=== PATIENT | female | born 1980 | race Caucasian/White ===

== ENCOUNTER 2016-07-19 10:42 | Emergency (ER) | payer MEDICAID ==
[2016-07-19 10:55] VITALS: BP 144/85
--- NOTE | 2016-07-19 11:37 | EDM.PDOC ---
ED HISTORY OF PRESENT ILLNESS - General Chief Complaint: Respiratory Problem Stated Complaint: HARD TIME BREATHING Time Seen by Provider: 07/19/16 11:35 Source: Reports: Patient, Family History Limitations: Reports: No limitations - History of Present Illness INITIAL COMMENTS - FREE TEXT/NARRATIVE: t has had increased sob. She has a history of increased spial fluid pressure and when that is high she has been sob also. Timing/Duration: Reports: Day(s):, Getting worse Severity: moderate Location, General: Reports: chest Associated Symptoms: Reports: shortness of breath - Related Data Allergies/ADRs: Allergies Allergy/AdvReac Type Severity Reaction Status Date / Time No Known Allergies Allergy Verified 06/14/16 18:36 Home Meds: Home Meds traMADol [Ultram] 50 mg PO QID PRN #16 tablet 12/24/15 [Rx] Methazolamide [Methazolamide] 200 mg PO BID 06/14/16 [History] Naproxen 500 mg PO ASDIRECTED PRN 07/19/16 [History] Ondansetron [Ondansetron] 4 mg PO ASDIRECTED PRN 07/19/16 [History] Past Medical History HEENT History: Reports: Impaired vision Cardiovascular History: Reports: Other (see below) Other Cardiovascular History: palpitations in the past. pericardial cyst with chest tube and drainage. Respiratory History: Reports: Other (see below) Other Respiratory History: chest tube d/t pericardial cyst treatment. 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 Sternal cortisone injections Other Neuro History: Idiopathic intercranial hypertension, frequent lumbar punctures to relieve pressure headaches - Infectious Disease History Infectious Disease History: Reports: Chicken pox Social & Family History - Tobacco Use Smoking Status *Q: Former Smoker Years of Tobacco use: 15 Packs/Tins Daily: 0.5 Used Tobacco, but Quit: No Second Hand Smoke Exposure: No - Caffeine Use Caffeine Use: Reports: None - Alcohol Use Days Per Week of Alcohol Use: 0 - Recreational Drug Use Recreational Drug Use: No ED ROS GENERAL - Review of Systems Review Of Systems: See Below Constitutional: Reports: no symptoms HEENT: Reports: No symptoms Respiratory: Reports: Shortness of Breath Cardiovascular: Reports: No symptoms Endocrine: Reports: no symptoms GI/Abdominal: Reports: No symptoms : Reports: no symptoms Musculoskeletal: Reports: no symptoms Skin: Reports: no symptoms Neurological: Reports: No Symptoms ED EXAM, GENERAL - Physical Exam Exam: See Below Free Text/Narrative:: pt knows her spinal fluid pressure is high and she is now sob. Her neurologist wanted to be sure that she was not getting acidotic. Exam Limited By: No limitations General Appearance: alert, anxious Ears: normal TMs Nose: normal inspection Throat/Mouth: Normal inspection Head: atraumatic Neck: normal inspection Respiratory/Chest: no respiratory distress, other (o2 sats are 99-100. ) Cardiovascular: regular rate, rhythm GI/Abdominal: soft, non tender (Female) Exam: Deferred Rectal (Female) Exam: Deferred Back Exam: normal inspection Extremities: normal inspection Neurological: alert, oriented Course - Vital Signs Last Recorded V/S: Last Vital Signs Temp 36.3 C 07/19/16 11:07 Pulse 94 07/19/16 11:07 Resp 16 07/19/16 11:07 BP 144/85 H 07/19/16 11:07 Pulse Ox 99 07/19/16 11:07 - Orders/Labs/Meds Labs: Laboratory Tests 07/19/16 07/19/16 07/19/16 Range/Units 11:33 11:33 12:47 WBC 9.1 (4.5-11.0) K/uL RBC 5.33 (3.30-5.50) M/uL Hgb 14.6 (12.0-15.0) g/dL Hct 45.3 (36.0-48.0) % MCV 85 (80-98) fL MCH 27 (27-31) pg MCHC 32 (32-36) % Plt Count 293 (150-400) K/uL Neut % (Auto) 63 (36-66) % Lymph % (Auto) 25 (24-44) % [place] % (Auto) 9 H (2-6) % Eos % (Auto) 2 (2-4) % Baso % (Auto) 1 (0-1) % ABG Hemoglobin 14.5 (12.0-16.0) g/dL ABG Oxyhemoglobin 61.3 % ABG Carboxyhemoglobin 1.3 (0.0-1.6) % ABG Methemoglobin 0.8 % VBG pH 7.343 L (7.350-7.450) VBG pCO2 35.2 mm/Hg VBG pO2 34.3 mm/Hg VBG HCO3 18.6 mmol/L VBG Total CO2 16.7 mmol/L VBG O2 Saturation 62.6 VBG O2 Content 12.5 %vol VBG Base Excess -5.8 mm/L O2 Delivery Device Room air Sodium 139 L (140-148) mmol/L Potassium 3.7 (3.6-5.2) mmol/L Chloride 104 (100-108) mmol/L Carbon Dioxide 21 (21-32) mmol/L Anion Gap 17.7 H (5.0-14.0) mmol/L BUN 10 (7-18) mg/dL Creatinine 0.7 (0.6-1.0) mg/dL Est Cr Clr Drug Dosing 89.56 mL/min Estimated GFR (MDRD) > 60 (>60) Glucose 80 (74-106) mg/dL Calcium 8.8 (8.5-10.1) mg/dL - Re-Assessments/Exams Free Text/Narrative Re-Assessment/Exam: 07/19/16 13:01 attempt were made to get abg and this was not sucessful. Venous ph was gotten which looked ok. Her co2 was alsogood. er chest xray is unchanged except her pericardial cyst has been drained. Departure - Departure Time of Disposition: 13:03 Disposition: Home, Self-Care 01 Condition: fair Clinical Impression: SOB (shortness of breath), Intracranial hypertension Forms: ED Department Discharge Care Plan Goals: copy lab work and send with the pt. Set up an appt with the neurologist for a spinal tap.
--- NOTE | 2016-07-19 12:47 | CR ---
Chest 2V INDICATION: sob FINDINGS: Comparison 02/04/2016. Atelectasis in the left lung base has resolved. The previously visua lized known pericardial cyst has presumably been drained. No focal infiltrate. Chest otherwise unrem arkable.
== END 2016-07-19 13:30 | disposition home or self-care (01) ==
LOC: JP.ED 10:42
DX: R06.02 Shortness of breath (principal); G93.2 Benign intracranial hypertension; Z79.899 Other long term (current) drug therapy; Z87.891 Personal history of nicotine dependence
CPT/HCPCS: 36415; 71020; 71020-26; 80048; 82803; 85025; 99283; 99285

== ENCOUNTER 2016-07-23 18:25 | Emergency (ER) | payer MEDICAID ==
[2016-07-23] MEDS ORDERED: Ondansetron 4 MG/2 ML SDV IVPUSH ONE (19:14)
[2016-07-23] MEDS ORDERED: Sodium Chloride 0.9% 1,000 ML IV SCH ×3 (19:15→21:45)
[2016-07-23] MEDS ORDERED: HYDROmorphone 0.5 MG/0.5 ML Syringe IVPUSH ONE (19:17)
--- NOTE | 2016-07-23 19:18 | EDM.PDOC ---
[id number] HEADACHE,NAUSEA,SOB Time Seen by Provider: 07/23/16 19:17 Source: Reports: Patient History Limitations: Reports: No limitations - History of Present Illness INITIAL COMMENTS - FREE TEXT/NARRATIVE: pt had a spinal tap 2 days ago and now she has a very severe headache. When she stands up she gets a much worse She has been vomiting all day. Timing/Duration: Reports: Hour(s):, Day(s):, Getting worse, Other ( pt has not felt well since last nite. ) Location: Reports: other (pain in the back of her head. ) Place: home Associated Symptoms: Reports: Nausea/vomiting, Other ( severe headache. ) - Related Data Allergies/ADRs: Allergies Allergy/AdvReac Type Severity Reaction Status Date / Time fish derived Allergy Difficulty Verified 07/23/16 19:02 Swallowing Home Meds: Home Meds Methazolamide [Methazolamide] 100 mg PO BID 06/14/16 [History] Naproxen 500 mg PO ASDIRECTED PRN 07/19/16 [History] Ondansetron [Ondansetron] 4 mg PO ASDIRECTED PRN 07/19/16 [History] traMADol [Ultram] 50 mg PO QID PRN 07/23/16 [History] Past Medical History HEENT History: Reports: Impaired vision Cardiovascular History: Reports: Other (see below) Other Cardiovascular History: palpitations in the past. pericardial cyst with chest tube and drainage. Respiratory History: Reports: Other (see below) Other Respiratory History: chest tube d/t pericardial cyst treatment. 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 Sternal cortisone injections Neurological History: Reports: Other (see below) Other Neuro History: Idiopathic intercranial hypertension, frequent lumbar punctures to relieve pressure headaches - Infectious Disease History Infectious Disease History: Reports: Chicken pox Social & Family History - Tobacco Use Smoking Status *Q: Light Tobacco Smoker Years of Tobacco use: 10 Packs/Tins Daily: 0.2 Used Tobacco, but Quit: No Second Hand Smoke Exposure: No - Caffeine Use Caffeine Use: Reports: None - Alcohol Use Days Per Week of Alcohol Use: 0 - Recreational Drug Use Recreational Drug Use: No ED ROS GENERAL - Review of Systems Review Of Systems: See Below Constitutional: Reports: no symptoms HEENT: Reports: No symptoms Respiratory: Reports: No Symptoms Cardiovascular: Reports: No symptoms Endocrine: Reports: no symptoms GI/Abdominal: Reports: No symptoms : Reports: no symptoms Neurological: Reports: Headache, Other ( Pt has a very severe post spinal headache, ) ED EXAM, UPPER BACK/NECK PAIN - Physical Exam Exam: See Below Text/Narrative:: Pt is a very uncomfortable pt with a severe post spinal headache. Exam Limited By: No limitations General Appearance: alert, anxious Ears Exam: normal TMs Nose Exam: normal inspection Throat/Mouth Exam: Normal inspection Head Exam: other (pt is having a very severe headache. ) Neck Exam: muscle spasm Cardiovascular/Respiratory: regular rate, rhythm GI/Abdominal: other (mild upper abdomanal tenderness from vomiting. ) (Female) Exam: Deferred Rectal (Female) Exam: Deferred Back Exam: normal inspection Extremities: normal inspection Neurologic: alert, oriented x 3 Psychiatric: normal affect Course - Vital Signs Last Recorded V/S: Last Vital Signs Temp 36.3 C 07/23/16 18:52 Pulse 81 07/23/16 22:49 Resp 16 07/23/16 18:52 BP 119/89 07/23/16 22:49 Pulse Ox 99 07/23/16 22:49 - Orders/Labs/Meds Labs: Laboratory Tests 07/23/16 07/23/16 Range/Units 19:24 19:24 WBC 10.1 (4.5-11.0) K/uL RBC 4.65 (3.30-5.50) M/uL Hgb 12.8 (12.0-15.0) g/dL Hct 39.4 (36.0-48.0) % MCV 85 (80-98) fL MCH 28 (27-31) pg MCHC 33 (32-36) % Plt Count 255 (150-400) K/uL Neut % (Auto) 61 (36-66) % Lymph % (Auto) 28 (24-44) % [place] % (Auto) 8 H (2-6) % Eos % (Auto) 2 (2-4) % Baso % (Auto) 1 (0-1) % Sodium 143 (140-148) mmol/L Potassium 3.6 (3.6-5.2) mmol/L Chloride 109 H (100-108) mmol/L Carbon Dioxide 22 (21-32) mmol/L Anion Gap 15.6 H (5.0-14.0) mmol/L BUN 11 (7-18) mg/dL Creatinine 0.7 (0.6-1.0) mg/dL Est Cr Clr Drug Dosing 89.56 mL/min Estimated GFR (MDRD) > 60 (>60) Glucose 122 H (74-106) mg/dL Calcium 8.2 L (8.5-10.1) mg/dL Meds: Medications Discontinued Medications Generic Name Dose Route Start Last Admin Trade Name Sukumarq PRN Reason Stop Dose Admin Hydromorphone HCl 0.5 mg 07/23/16 19:17 07/23/16 19:31 Dilaudid IVPUSH 07/23/16 19:18 0.5 mg ONETIME ONE Administration Sodium Chloride 1,000 mls @ 300 mls/hr 07/23/16 19:15 07/23/16 19:31 Normal Saline IV 300 mls/hr ASDIRECTED CHARITY Administration Sodium Chloride 1,000 mls @ 200 mls/hr 07/23/16 21:45 Normal Saline IV ASDIRECTED CHARITY Sodium Chloride 1,000 mls @ 999 mls/hr 07/23/16 21:45 07/23/16 21:45 Normal Saline IV 999 mls/hr ASDIRECTED CHARITY Administration Ondansetron HCl 4 mg 07/23/16 19:14 07/23/16 19:31 Zofran IVPUSH 07/23/16 19:15 4 mg ONETIME ONE Administration - Re-Assessments/Exams Free Text/Narrative Re-Assessment/Exam: 07/23/16 21:47 pt had a blood patch done which has been helpful. She states the headache is much better. She will be given 2 liters of fluid. will gradually get the pt to a sitting a position after an hour. Will gradually mobilize the pt. Departure - Departure Time of Disposition: 23:15 Disposition: Home, Self-Care 01 Condition: fair Clinical Impression: Headache, spinal, postoperative Instructions: Spinal Headache Referrals: Domenico Bay MD [Primary Care Provider] - Forms: ED Department Discharge Care Plan Goals: low activity, push fluids, rtc if problems.
--- NOTE | 2016-07-23 21:56 | ANES ---
DATE OF SERVICE: 07/23/2016 Anesthesia Procedure note. INDICATIONS: This is a 36-year-old lady in the emergency room with an apparent spinal headache, this lady is well known to us. She has a history of having to have a cerebral spinal fluid drained off. She has been having these last several done in [place] and [place]. This one was done in [place]. On questioning her where it normally takes 45 minutes to an hour to drain this CSF, this was done by radiologist in [place] and she said it only talk about 5 or 10 minutes to drain off the fluid. To me that means that he used either a 20 or 18-gauge spinal needle, producing a hole in her dura that did not heal. The procedure was explained to her in detail. All questions were answered. She has not had a blood patch epidural in the past. A consent was signed. She was placed in the sitting position. Her feet were on a chair. Knees bent at 90 degrees. Betadine solution prep, the epidural was accomplished at what I believe is L4-5. I could not see the hole that the radiologist had used. I had a good seal. No paresthesia. No CSF. No blood. The 15 mL of whole blood was drawn by the emergency room nurse from her left antecubital, this was then injected into the epidural space through the needle. By the end of the injection her headache was feeling much better to her. The needle was removed. She was placed in the supine position. She was counseled strongly on avoiding the Valsalva maneuvers such as lifting her head coughing, sneezing, getting up, holding her breath, straining at going to the bathroom. She understands this. We are going to leave her supine for 45 minutes. Gradually, increasing her 5 to 10 degrees head up. She will receive a total 2 L of crystalloid. Tolerated the procedure well. Adam Velez CRNA /[id number]
[2016-07-23 22:57] VITALS: BP 119/89
== END 2016-07-23 23:09 | disposition home or self-care (01) ==
LOC: JP.ED 18:25
DX: G97.1 Other reaction to spinal and lumbar puncture (principal); F17.210 Nicotine dependence, cigarettes, uncomplicated; Z79.899 Other long term (current) drug therapy; Z91.018 Allergy to other foods
CPT/HCPCS: 36415; 80048; 85025; 96361; 96374; 96375; 99285; J1170; J2405; J7040; 99284

== ENCOUNTER 2016-08-23 21:08 | Emergency (ER) | payer MEDICAID ==
[2016-08-23 21:19] VITALS: BP 135/80
[2016-08-23] MEDS ORDERED: EPINEPHrine 1:1000 1 MG/ML SDV IM ONE (21:42)
[2016-08-23] MEDS ORDERED: diphenhydrAMINE 50 MG/ML SDV IVPUSH ONE (21:42)
[2016-08-23] MEDS ORDERED: methylPREDNISolone Sodium Succinate 40 MG/1 ML SDV IVPUSH ONE (21:42)
--- NOTE | 2016-08-23 21:45 | EDM.PDOC ---
ED HPI Allergic Reaction - General Chief Complaint: Allergic Reaction Stated Complaint: FACE TIGHTENING Time Seen by Provider: 08/23/16 21:39 Source: Reports: Patient, RN notes reviewed History Limitations: Reports: No limitations - History of Present Illness INITIAL COMMENTS - FREE TEXT/NARRATIVE: 36-year-old female presents emergency department today with complaint of facial swelling she states sudden onset denies any new medications new foods she has had issues with allergic reaction before she does not feel short of breath and no difficulty swallowing - Related Data Allergies/ADRs: Allergies Allergy/AdvReac Type Severity Reaction Status Date / Time fish derived Allergy Difficulty Verified 08/23/16 21:19 Swallowing Home Meds: Home Meds Methazolamide [Methazolamide] 100 mg PO BID 06/14/16 [History] Naproxen 500 mg PO ASDIRECTED PRN 07/19/16 [History] Ondansetron [Ondansetron] 4 mg PO ASDIRECTED PRN 07/19/16 [History] traMADol [Ultram] 50 mg PO QID PRN 07/23/16 [History] Past Medical History HEENT History: Reports: Impaired vision Cardiovascular History: Reports: Other (see below) Other Cardiovascular History: palpitations in the past. pericardial cyst with chest tube and drainage. Respiratory History: Reports: Other (see below) Other Respiratory History: chest tube d/t pericardial cyst treatment. 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 Sternal cortisone injections Neurological History: Reports: Other (see below) Other Neuro History: Idiopathic intercranial hypertension, frequent lumbar punctures to relieve pressure headaches - Infectious Disease History Infectious Disease History: Reports: Chicken pox Social & Family History - Tobacco Use Smoking Status *Q: Light Tobacco Smoker Years of Tobacco use: 10 Packs/Tins Daily: 0.2 Used Tobacco, but Quit: No Second Hand Smoke Exposure: No - Caffeine Use Caffeine Use: Reports: None - Alcohol Use Days Per Week of Alcohol Use: 0 - Recreational Drug Use Recreational Drug Use: No ED ROS ALLERGIC REACTION - Review of Systems Review Of Systems: See Below Constitutional: Reports: no symptoms HEENT: Reports: Other (Facial swelling). Denies: Throat pain, Throat swelling Respiratory: Reports: No Symptoms Cardiovascular: Reports: No symptoms GI/Abdominal: Reports: No symptoms : Reports: no symptoms ED EXAM GENERAL NO PERIP PULSE - Physical Exam Exam: See Below Exam Limited By: No limitations General Appearance: alert, WD/WN, no apparent distress, other (Does have difficulty speaking, feels like she just came from the dentist) Eye Exam: bilateral eye: normal inspection Throat/Mouth: Normal inspection, Normal lips, Normal teeth, Normal gums, Normal oropharynx, Normal voice, No airway compromise Head: atraumatic, normocephalic Neck: normal inspection, supple, non-tender, full range of motion Respiratory/Chest: no respiratory distress, lungs clear, normal breath sounds, no accessory muscle use Cardiovascular: regular rate, rhythm, no murmur Course - Vital Signs Last Recorded V/S: Last Vital Signs Temp 98 F 08/23/16 21: Pulse 88 08/23/16 21:17 Resp 16 08/23/16 21:17 BP 135/80 08/23/16 21: Pulse Ox 99 08/23/16 21:17 - Orders/Labs/Meds Labs: Laboratory Tests 08/23/16 08/23/16 Range/Units 22:48 22:48 WBC 12.7 H (4.5-11.0) K/uL RBC 5.10 (3.30-5.50) M/uL Hgb 13.9 (12.0-15.0) g/dL Hct 43.3 (36.0-48.0) % MCV 85 (80-98) fL MCH 27 (27-31) pg MCHC 32 (32-36) % Plt Count 292 (150-400) K/uL Neut % (Auto) 62 (36-66) % Lymph % (Auto) 31 (24-44) % [place] % (Auto) 5 (2-6) % Eos % (Auto) 2 (2-4) % Baso % (Auto) 0 (0-1) % Sodium 140 (140-148) mmol/L Potassium 3.2 L (3.6-5.2) mmol/L Chloride 108 (100-108) mmol/L Carbon Dioxide 24 (21-32) mmol/L Anion Gap 11.2 (5.0-14.0) mmol/L BUN 7 (7-18) mg/dL Creatinine 0.9 (0.6-1.0) mg/dL Est Cr Clr Drug Dosing 69.66 mL/min Estimated GFR (MDRD) > 60 (>60) Glucose 136 H (74-106) mg/dL Calcium 7.9 L (8.5-10.1) mg/dL Total Bilirubin 0.1 L (0.2-1.0) mg/dL AST 19 (15-37) U/L ALT 18 (12-78) U/L Alkaline Phosphatase 95 (46-116) U/L Total Protein 6.8 (6.4-8.2) g/dL Albumin 3.2 L (3.4-5.0) g/dL Globulin 3.6 H (2.3-3.5) g/dL Albumin/Globulin Ratio 0.9 L (1.2-2.2) Meds: Medications Discontinued Medications Generic Name Dose Route Start Last Admin Trade Name Freq PRN Reason Stop Dose Admin Diphenhydramine HCl 25 mg 08/23/16 21:42 08/23/16 21:48 Benadryl IVPUSH 08/23/16 21:43 25 mg ONETIME ONE Administration Epinephrine HCl 0.3 mg 08/23/16 21:42 08/23/16 21:49 Adrenalin 1:1000 IM 08/23/16 21:43 0.3 mg ONETIME ONE Administration Methylprednisolone Sodium Succinate 40 mg 08/23/16 21:42 08/23/16 21:46 Solu-Medrol IVPUSH 08/23/16 21:43 40 mg ONETIME ONE Administration Ondansetron HCl 4 mg 08/23/16 21:52 08/23/16 21:57 Zofran IVPUSH 08/23/16 21:53 4 mg ONETIME ONE Administration Departure - Departure Time of Disposition: 23:23 Disposition: Home, Self-Care 01 Condition: good Clinical Impression: Facial swelling Forms: ED Department Discharge Additional Instructions: Continue to use Benadryl as needed, Please followup with your primary care provider in 3-5 days if not better, please call return to the emergency department with worsening of symptoms. - Assessment/Plan Plan: Assessment Acuity = acute Site and laterality = facial swelling possibly related to allergic reaction Etiology = unclear etiology Manifestations = none Location of injury = home Lab values = WBC elevated at 12.7 consistent leukocytosis, potassium low at 2.2 consistent hypokalemia albumin low at 3.2 consistent hypoalbuminemia Plan She had good improvement combination of epinephrine, Solu-Medrol and Benadryl she is able to speak without difficulty at this time still feels some facial swelling no difficulty breathing, will have her followup with her primary care in 3-5 days for reevaluation Patient was in agreement with the plan all questions were answered, they were instructed to return to the emergency department or call for worsening symptoms. This note was dictated using [employer] voice recognition software please call with any questions.
[2016-08-23] MEDS ORDERED: Ondansetron 4 MG/2 ML SDV IVPUSH ONE (21:52)
== END 2016-08-23 23:50 | disposition home or self-care (01) ==
LOC: JP.ED 21:08
DX: R22.0 Localized swelling, mass and lump, head (principal); F17.210 Nicotine dependence, cigarettes, uncomplicated; Z91.013 Allergy to seafood
CPT/HCPCS: 36415; 80053; 85025; 96374; 96375; 99284; J0171; J1200; J2405; J2920; 99283

== ENCOUNTER 2016-12-16 21:56 | Emergency (ER) | payer MEDICAID ==
[2016-12-16 22:06] VITALS: BP 132/80
--- NOTE | 2016-12-16 23:00 | EDM.PDOC ---
<Gallo Koch - Last Filed: 12/16/16 22:54> ED HPI GENERAL MEDICAL PROBLEM - General Chief Complaint: Respiratory Problem Stated Complaint: sob Time Seen by Provider: 12/16/16 22:55 Source of Information: Reports: Patient History Limitations: Reports: No Limitations - History of Present Illness INITIAL COMMENTS - FREE TEXT/NARRATIVE: With increasing shortness of breath about 7:30pm tonight while playing cards. Did lay down to rest without improvement. Oxygen applied on arrival. Pt notes improved symptoms. Denies fever. Appetite normal. Has been reducing meds to 50mg BID over the last 3 weeks. Feels like these symptoms happen due to her meds. Last episode this spring. Onset: Sudden Onset Date: 12/16/16 Onset Time: 19:30 Location: Reports: Chest Improves with: Reports: Movement, Other (oxygen) Worsens with: Reports: Movement Associated Symptoms: Reports: No Other Symptoms denies pain Pain Score (Numeric/FACES): 0 - Related Data Allergies Allergy/AdvReac Type Severity Reaction Status Date / Time fish derived Allergy Difficulty Verified 12/16/16 22:40 Swallowing Home Meds: Home Meds Methazolamide [Methazolamide] 50 mg PO BID 06/14/16 [History] Naproxen 500 mg PO ASDIRECTED PRN 07/19/16 [History] Ondansetron [Ondansetron] 4 mg PO ASDIRECTED PRN 07/19/16 [History] traMADol [Ultram] 50 mg PO QID PRN 07/23/16 [History] Past Medical History HEENT History: Reports: Impaired Vision Cardiovascular History: Reports: Other (See Below) Other Cardiovascular History: Paracardial cyst Respiratory History: Reports: Other (See Below) Other Respiratory History: chest tube d/t pericardial cyst treatment. 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 Sternal cortisone injections Neurological History: Reports: Other (See Below) Other Neuro History: Intercranial hypertension - Infectious Disease History Infectious Disease History: Reports: Chicken Pox - Past Surgical History Cardiovascular Surgical History: Reports: Other (See Below) Other Cardiovascular Surgeries/Procedures: Paracardial cyst drained Neurological Surgical History: Reports: None Musculoskeletal Surgical History: Reports: None Social & Family History - Tobacco Use Smoking Status *Q: Never Smoker Years of Tobacco use: 10 Packs/Tins Daily: 0.2 Used Tobacco, but Quit: No Second Hand Smoke Exposure: No - Caffeine Use Caffeine Use: Reports: None - Alcohol Use Days Per Week of Alcohol Use: 0 - Recreational Drug Use Recreational Drug Use: No ED ROS GENERAL - Review of Systems Review Of Systems: See Below Constitutional: Reports: No Symptoms HEENT: Reports: No Symptoms, Other (dry mouth) Respiratory: Reports: Shortness of Breath Cardiovascular: Reports: No Symptoms Musculoskeletal: Reports: Hand Pain (muscles tight) Neurological: Reports: No Symptoms ED EXAM, GENERAL - Physical Exam Exam: See Below Exam Limited By: No Limitations General Appearance: Alert, WD/WN, No Apparent Distress Ears: Normal External Exam, Normal Canal, Hearing Grossly Normal, Normal TMs Nose: Normal Inspection, Normal Mucosa, No Blood Throat/Mouth: Normal Inspection, Normal Lips, Normal Teeth, Normal Gums, Normal Oropharynx, Normal Voice, No Airway Compromise, Other (dry mouth) Head: Atraumatic, Normocephalic Neck: Normal Inspection, Supple, Non-Tender, Full Range of Motion Respiratory/Chest: No Respiratory Distress, Lungs Clear, Normal Breath Sounds, No Accessory Muscle Use, Chest Non-Tender Cardiovascular: Normal Peripheral Pulses, Regular Rate, Rhythm, No Edema, No Gallop, No JVD, No Murmur, No Rub Extremities: Normal Inspection, Normal Range of Motion, Non-Tender, Normal Capillary Refill, No Pedal Edema Neurological: Alert, Oriented, CN II-XII Intact, Normal Cognition, Normal Gait, Normal Reflexes, No Motor/Sensory Deficits Course - Vital Signs Last Recorded V/S: Last Vital Signs Temp 36.6 C 12/16/16 22:05 Pulse 102 H 12/16/16 22:05 Resp 20 12/16/16 22:05 BP 132/80 12/16/16 22:05 Pulse Ox 98 12/16/16 22:05 - Orders/Labs/Meds Labs: Laboratory Tests 12/16/16 12/16/16 12/16/16 Range/Units 23:01 23:01 23:20 WBC 12.3 H (4.5-11.0) K/uL RBC 5.05 (3.30-5.50) M/uL Hgb 14.0 (12.0-15.0) g/dL Hct 41.1 (36.0-48.0) % MCV 81 (80-98) fL MCH 28 (27-31) pg MCHC 34 (32-36) % Plt Count 257 (150-400) K/uL Neut % (Auto) 54 (36-66) % Lymph % (Auto) 36 (24-44) % [place] % (Auto) 8 H (2-6) % Eos % (Auto) 2 (2-4) % Baso % (Auto) 0 (0-1) % Puncture Site Rt radial ABG pH 7.432 (7.350-7.450) ABG pCO2 33.2 L (35.0-42.0) mmHg ABG pO2 84.1 (75.0-100.0) mmHg ABG HCO3 21.8 L (22.0-26.0) mmol/L ABG Total CO2 19.1 L (21.0-25.0) mmol/L ABG O2 Saturation 97.0 (95.0-98.0) % ABG O2 Content 18.2 (15.0-23.0) %vol ABG Base Excess -1.3 mm/L ABG Hemoglobin 13.9 (12.0-16.0) g/dL ABG Oxyhemoglobin 92.8 % ABG Carboxyhemoglobin 3.7 H (0.0-1.6) % ABG Methemoglobin 0.6 % Roney Test Passed O2 Delivery Device Nasal cannula Oxygen Flow Rate 2 L Sodium 138 L (140-148) mmol/L Potassium 3.8 (3.6-5.2) mmol/L Chloride 108 (100-108) mmol/L Carbon Dioxide 23 (21-32) mmol/L Anion Gap 10.8 (5.0-14.0) mmol/L BUN 6 L (7-18) mg/dL Creatinine 0.6 (0.6-1.0) mg/dL Est Cr Clr Drug Dosing 104.49 mL/min Estimated GFR (MDRD) > 60 (>60) Glucose 80 (74-106) mg/dL Calcium 9.4 D (8.5-10.1) mg/dL Total Bilirubin 0.2 D (0.2-1.0) mg/dL AST 19 (15-37) U/L ALT 14 (12-78) U/L Alkaline Phosphatase 88 (46-116) U/L Total Protein 6.8 (6.4-8.2) g/dL Albumin 3.0 L (3.4-5.0) g/dL Globulin 3.8 H (2.3-3.5) g/dL Albumin/Globulin Ratio 0.8 L (1.2-2.2) Departure - Departure Disposition: Eloped 07 Clinical Impression: History of elopement from health care facility - Discharge Information Referrals: Domenico Bay MD [Primary Care Provider] - Forms: ED Department Discharge <Kimberley Tam - Last Filed: 12/18/16 00:46> Course - Re-Assessments/Exams Free Text/Narrative Re-Assessment/Exam: 12/17/16 00:25 pt was found to have a ph of 7.42 which was normal. Her o2 levels were found to be normal. I offered to call her spwecialist regarding his recommendations with how she is feeling and the normal lab work. She couild not give me a name or a department to call. She kept saying that the last time she was here she got fluids and solumedrol and it helped. I did go back to the records and Dr Officer thought she was having an allergic reaction and that is why he gave her steriods and fluids. I offered to get a chest xray to see if there was an infiltrate or any chnges and she refused that. I did listen to her chest and did not here any congestion. her electrolytes looked good. She advised that if there was specfic protocol to follow with her problem that it would be helpful to get that to us. Her co2 is mildly low on the gases like she may have hyperventilated earlier. She does not appear to be hyperventilating at this time. 12/17/16 00:29 Departure - Departure Time of Disposition: 00:36 Condition: Fair
== END 2016-12-17 00:35 | disposition left against medical advice (07) ==
LOC: JP.ED 21:56
DX: R06.02 Shortness of breath (principal); Z91.013 Allergy to seafood; Z98.890 Other specified postprocedural states
CPT/HCPCS: 36600; 80053; 82803; 85025; 99283; 99285

== ENCOUNTER 2017-03-06 09:39 | Emergency (ER) | payer MEDICAID ==
[2017-03-06 10:03] VITALS: BP 135/83
[2017-03-06] MEDS ORDERED: Lidocaine 1% with EPINEPHrine 1:100,000 50 ML MDV INFILT ONE (10:21)
[2017-03-06] MEDS ORDERED: HYDROmorphone 1 MG/ML Syringe IVPUSH ONE (10:36)
--- NOTE | 2017-03-06 10:45 | EDM.PDOC ---
ED HPI GENERAL MEDICAL PROBLEM - General Chief Complaint: ENT Problem Stated Complaint: ABSESS TOOTH Time Seen by Provider: 03/06/17 10:10 Source of Information: Reports: Patient History Limitations: Reports: No Limitations - History of Present Illness INITIAL COMMENTS - FREE TEXT/NARRATIVE: 37-year-old female was seen yesterday and started on Augmentin for dental pain, however today she has increased swelling, increased pain despite being on the antibiotic. She called the dental clinic and they said they were too full, could not see her for one week and sent her here. She is not febrile but she does have significant facial asymmetry from the pressure and also feels a lump on the upper hard palate behind her incisors. Onset: Gradual Quality: Reports: Ache, Sharp, Throbbing Severity: Moderate Associated Symptoms: Reports: Headaches, Malaise, Nausea/Vomiting. Denies: Fever/Chills Tooth/Teeth Pain Score (Numeric/FACES): 10 - Related Data Allergies Allergy/AdvReac Type Severity Reaction Status Date / Time fish derived Allergy Severe Difficulty Verified 03/06/17 12:31 Swallowing Home Meds: Home Meds Naproxen 500 mg PO ASDIRECTED PRN 07/19/16 [History] Ondansetron [Ondansetron] 4 mg PO ASDIRECTED PRN 07/19/16 [History] traMADol [Ultram] 50 mg PO QID PRN 07/23/16 [History] Amoxicillin/Clavulanate K [Augmentin 875-125 MG] 1 oz PO BID 03/06/17 [History] Furosemide [Lasix] 10 mg PO DAILY 03/06/17 [History] Past Medical History HEENT History: Reports: Impaired Vision Cardiovascular History: Reports: Other (See Below) Other Cardiovascular History: Paracardial cyst Respiratory History: Reports: Other (See Below) Other Respiratory History: chest tube d/t pericardial cyst treatment. 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 Sternal cortisone injections Neurological History: Reports: Other (See Below) Other Neuro History: Intercranial hypertension - Infectious Disease History Infectious Disease History: Reports: Chicken Pox, Shingles - Past Surgical History Cardiovascular Surgical History: Reports: Other (See Below) Other Cardiovascular Surgeries/Procedures: Paracardial cyst drained Neurological Surgical History: Reports: None Musculoskeletal Surgical History: Reports: None Social & Family History - Tobacco Use Smoking Status *Q: Current Every Day Smoker Years of Tobacco use: 10 Packs/Tins Daily: 1 Used Tobacco, but Quit: No Second Hand Smoke Exposure: Yes - Caffeine Use Caffeine Use: Reports: Soda, Tea - Alcohol Use Days Per Week of Alcohol Use: 0 - Recreational Drug Use Recreational Drug Use: No ED ROS ENT - Review of Systems Review Of Systems: See Below Constitutional: Reports: Malaise. Denies: Fever, Chills Respiratory: Denies: Shortness of Breath Cardiovascular: Denies: Chest Pain Neurological: Reports: Headache Psychiatric: Reports: No Symptoms ED EXAM, ENT - Physical Exam Exam: See Below Exam Limited By: No Limitations General Appearance: Alert, Mild Distress (Patient looks fairly uncomfortable) Course - Vital Signs Last Recorded V/S: Last Vital Signs Temp 97.3 F 03/06/17 10:02 Pulse 90 03/06/17 10:02 Resp 16 03/06/17 10:02 BP 135/83 03/06/17 10:02 Pulse Ox 94 L 03/06/17 10:02 - Orders/Labs/Meds Orders: Active Orders 24 hr Category Date Time Status CULTURE WOUND + SMEAR [RM] Stat Lab 03/06/17 10:52 Results Saline Lock Insert [OM.PC] Routine Oth 03/06/17 10:35 Ordered Meds: Medications Discontinued Medications Generic Name Dose Route Start Last Admin Trade Name Sukumarq PRN Reason Stop Dose Admin Hydromorphone HCl 1 mg 03/06/17 10:36 03/06/17 11:04 Dilaudid IVPUSH 03/06/17 10:37 1 mg ONETIME ONE Administration Clindamycin Phosphate 600 mg/ 54 mls @ 100 mls/hr 03/06/17 10:36 03/06/17 11: 34 Sodium Chloride IV 03/06/17 11:08 100 mls/hr ONETIME ONE Administration Ketorolac Tromethamine 30 mg 03/06/17 11:04 03/06/17 11:35 Toradol IVPUSH 03/06/17 11:05 30 mg ONETIME ONE Administration Lidocaine/Epinephrine 30 ml 03/06/17 10:21 03/06/17 11:02 Xylocaine 1% With Epinephrine 1:100,000 INFILT 03/06/17 10:22 30 ml ONETIME ONE Administration Sodium Chloride 10 ml 03/06/17 10:35 03/06/17 11:37 Saline Flush FLUSH 10 ml ASDIRECTED PRN Administration Keep Vein Open Departure - Departure Time of Disposition: 12:07 Disposition: Home, Self-Care 01 Condition: Good Clinical Impression: Dental abscess - Discharge Information Instructions: Dental Abscess Referrals: Domenico Bay MD [Primary Care Provider] - Forms: ED Department Discharge Care Plan Goals: Rest today, return to register for additional treatment at 5 to 5:30 this evening. Stop Augmentin. - My Orders Last 24 Hours: My Active Orders 03/06/17 10:35 Saline Lock Insert [OM.PC] Routine 03/06/17 10:52 CULTURE WOUND + SMEAR [RM] Stat - Assessment/Plan Last 24 Hours: My Active Orders 03/06/17 10:35 Saline Lock Insert [OM.PC] Routine 03/06/17 10:52 CULTURE WOUND + SMEAR [RM] Stat
[2017-03-06] MEDS: Sodium Chloride 0.9% 10 ML Syringe FLUSH PRN ×3 (11:04→11:37)
[2017-03-06] MEDS ORDERED: Ketorolac 30 MG/ML SDV IVPUSH ONE (11:04)
== END 2017-03-06 11:55 | disposition home or self-care (01) ==
LOC: JP.ED 09:39
DX: K04.7 Periapical abscess without sinus (principal); F17.210 Nicotine dependence, cigarettes, uncomplicated; Z79.899 Other long term (current) drug therapy; Z91.013 Allergy to seafood
CPT/HCPCS: 87070; 87205; 96365; 96375; 99283; J1170; J1885; J7050; 87077; S0077

== ENCOUNTER 2017-03-06 17:47 | Emergency (ER) | payer MEDICAID ==
--- NOTE | 2017-03-06 17:58 | EDM.PDOC ---
<David Buckley - Last Filed: 03/06/17 18:34> ED HPI GENERAL MEDICAL PROBLEM - General Stated Complaint: INFECTED TOOTH Time Seen by Provider: 03/06/17 17:50 Source of Information: Reports: Patient History Limitations: Reports: No Limitations - History of Present Illness INITIAL COMMENTS - FREE TEXT/NARRATIVE: 37-year-old female seen earlier today and given 600 mg of clindamycin IV along with pain control isn't for a second IV dose. She had good improvement for most of the afternoon but over the past hour she's had increased swelling and pain, increased edema. She's been vomiting persistently today. Still no fever or chills. Onset: Gradual (Over the past 16 hours) Severity: Moderate Associated Symptoms: Reports: Headaches, Nausea/Vomiting. Denies: Fever/Chills Tooth/Teeth Pain Score (Numeric/FACES): 9 - Related Data Allergies Allergy/AdvReac Type Severity Reaction Status Date / Time fish derived Allergy Severe Difficulty Verified 03/06/17 12:31 Swallowing Home Meds: Home Meds Naproxen 500 mg PO ASDIRECTED PRN 07/19/16 [History] Ondansetron [Ondansetron] 4 mg PO ASDIRECTED PRN 07/19/16 [History] traMADol [Ultram] 50 mg PO QID PRN 07/23/16 [History] Acetaminophen/oxyCODONE [Percocet 325-5 MG] 1 - 2 each PO Q4H PRN #10 tab [Rx] Amoxicillin/Clavulanate K [Augmentin 875-125 MG] 1 tab PO BID 03/06/17 [History] Furosemide [Lasix] 10 mg PO DAILY 03/06/17 [History] Past Medical History HEENT History: Reports: Impaired Vision Cardiovascular History: Reports: Other (See Below) Other Cardiovascular History: Paracardial cyst Respiratory History: Reports: Other (See Below) Other Respiratory History: chest tube d/t pericardial cyst treatment. 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, 02/03/16 Sternal cortisone injections Neurological History: Reports: Other (See Below) Other Neuro History: Intercranial hypertension - Infectious Disease History Infectious Disease History: Reports: Chicken Pox, Shingles - Past Surgical History Cardiovascular Surgical History: Reports: Other (See Below) Other Cardiovascular Surgeries/Procedures: Paracardial cyst drained Neurological Surgical History: Reports: None Musculoskeletal Surgical History: Reports: None Social & Family History - Tobacco Use Smoking Status *Q: Current Every Day Smoker Years of Tobacco use: 10 Packs/Tins Daily: 1 Used Tobacco, but Quit: No Second Hand Smoke Exposure: Yes - Caffeine Use Caffeine Use: Reports: Soda, Tea - Alcohol Use Days Per Week of Alcohol Use: 0 - Recreational Drug Use Recreational Drug Use: No ED ROS ENT - Review of Systems Review Of Systems: See Below Constitutional: Reports: Malaise. Denies: Fever, Chills HEENT: Reports: Other (Facial pain, dental pain in the right upper maxillary area) Respiratory: Denies: Shortness of Breath Skin: Reports: Bruising (Starting to develop a little bit of bruising in the upper right cheek as well as the erythema) ED EXAM, ENT - Physical Exam Exam: See Below Exam Limited By: No Limitations General Appearance: Alert, Mild Distress (Patient is fairly uncomfortable) Eye Exam: Bilateral Eye: EOMI, Periorbital Changes (A small amount of periorbital edema as present around the right eye especially the lower eyelid and cheek) Mouth/Throat: Other (She has a fluctuant fluid-filled abscess in the center of the hard upper palate behind the incisors. This is very similar to what was incised this morning.) Head: Other (She has some diffuse facial edema, a small amount of ecchymosis and erythema over the right cheek and paranasal area. It is tender to palpation. ) Respiratory/Chest: No Respiratory Distress Neurological: Alert, Oriented Psychiatric: Normal Affect, Normal Mood Course - Vital Signs Last Recorded V/S: Last Vital Signs Temp 36.6 C 03/06/17 18:04 Pulse 70 03/06/17 20:18 Resp 20 03/06/17 20:18 BP 115/55 L 03/06/17 20:18 Pulse Ox 98 03/06/17 20:18 - Orders/Labs/Meds Orders: Active Orders 24 hr Category Date Time Status Max Facial Sinus w Cont [CT] Stat Exams 03/06/17 18:26 Taken Sodium Chloride 0.9% [Saline Flush] Med 03/06/17 18:34 Active 10 ml FLUSH ONETIME PRN Medication Orders Sodium Chloride (Saline Flush) 10 ml FLUSH ONETIME PRN PRN Reason: PER RADIOLOGY PROTOCOL Last Admin: 03/06/17 19:02 Dose: 10 ml Admin: 03/06/17 18:42 Dose: 10 ml Admin: 03/06/17 18:39 Dose: 10 ml Meds: Medications Generic Name Dose Route Start Last Admin Trade Name Harvey PRN Reason Stop Dose Admin Sodium Chloride 10 ml 03/06/17 18:34 03/06/17 19:02 Saline Flush FLUSH 10 ml ONETIME PRN Administration PER RADIOLOGY PROTOCOL Discontinued Medications Generic Name Dose Route Start Last Admin Trade Name Freq PRN Reason Stop Dose Admin Hydromorphone HCl 1 mg 03/06/17 18:27 03/06/17 18:39 Dilaudid IVPUSH 03/06/17 18:28 1 mg ONETIME ONE Administration Sodium Chloride 75 mls @ 3 mls/sec 03/06/17 18:34 03/06/17 19:02 Normal Saline IV 03/06/17 18:35 3 mls/sec ONETIME ONE Administration Iopamidol 100 ml 03/06/17 18:34 03/06/17 19:02 Isovue-300 (61%) IV 100 ml . DIRECTED PRN Administration RADIOLOGY EXAM Ketorolac Tromethamine 30 mg 03/06/17 18:27 03/06/17 18:33 Toradol IVPUSH 03/06/17 18:28 30 mg ONETIME ONE Administration - Re-Assessments/Exams Free Text/Narrative Re-Assessment/Exam: 03/06/17 17:58 The patient initially was set up to be an outpatient antibiotic and pain control , but was reregistered. I talked with the hospitalist about possibly admitting her for IV antibiotics but a CT of the facial bones is necessary first to assess for any abscess formation. 03/06/17 18:35 Clindamycin was given IV as well as pain control with Toradol and Dilaudid. A CBC and BMP were obtained, white count is 13.6, GFR and creatinine are normal. A maxillofacial bone CT with IV contrast was ordered to assess for a facial abscess. Dr. Mcrae accepted the patient pending CT results. Departure - Departure Disposition: Home, Self-Care 01 Clinical Impression: Dental infection - Discharge Information Referrals: PCP,None [Primary Care Provider] - Additional Instructions: Return in morning for recheck and likely another dose of antibiotic Make dental appointment as soon as possible <Dilan Mcrae - Last Filed: 03/06/17 20:54> Course - Re-Assessments/Exams Free Text/Narrative Re-Assessment/Exam: 03/06/17 20:24 20.20 Transferred to my care from Dr. Nguyen are, see separate note Dental infection CT of the face negative for abscess Discharge Chronic pain meds Return in the morning for recheck Departure - Departure Time of Disposition: 20:22 Condition: Good
[2017-03-06] MEDS ORDERED: HYDROmorphone 1 MG/ML Syringe IVPUSH ONE (18:27)
[2017-03-06] MEDS ORDERED: Ketorolac 30 MG/ML SDV IVPUSH ONE (18:27)
[2017-03-06] MEDS ORDERED: Iopamidol 612 MG/ML 100 ML Bottle IV PRN (18:34)
[2017-03-06] MEDS ORDERED: Sodium Chloride 0.9% 75 ML IV ONE (18:34)
[2017-03-06] MEDS: Sodium Chloride 0.9% 10 ML Syringe FLUSH PRN ×3 (18:39→19:02)
[2017-03-06 20:18] VITALS: BP 115/55
== END 2017-03-06 20:40 | disposition home or self-care (01) ==
LOC: JP.ED 17:47
DX: K04.7 Periapical abscess without sinus (principal); F17.210 Nicotine dependence, cigarettes, uncomplicated; Z79.899 Other long term (current) drug therapy; Z91.013 Allergy to seafood
CPT/HCPCS: 70487; 96374; 96375; 99284; J1170; J1885; J7030; J7050; Q9967; 36415; 80048; 85025; 87070; 87077; 87205; 96365; 99283; 99283-25; J2405; S0077

== ENCOUNTER 2017-03-07 08:42 | Emergency (ER) | payer MEDICAID ==
[2017-03-07] MEDS ORDERED: Ketorolac 30 MG/ML SDV IVPUSH ONE (09:03)
[2017-03-07] MEDS ORDERED: Ondansetron 4 MG/2 ML SDV IVPUSH ONE (09:03)
[2017-03-07 09:27] VITALS: BP 138/87
--- NOTE | 2017-03-07 09:59 | EDM.PDOC ---
ED HPI GENERAL MEDICAL PROBLEM - General Chief Complaint: ENT Problem Stated Complaint: IV ANTIBIOTICS Time Seen by Provider: 03/07/17 09:10 Source of Information: Reports: Patient History Limitations: Reports: No Limitations - History of Present Illness INITIAL COMMENTS - FREE TEXT/NARRATIVE: 37-year-old female with ongoing right upper dental infection slowly improving with IV antibiotics. She is going to be a work in at the dental clinic tomorrow morning. A CT scan last night did not reveal a significant abscess. The Gram stain and culture I obtained yesterday morning is packed with WBCs, some gram- positive cocci and gram-positive rods. Nothing significant growing at this time. She had very little pain after discharge from the ER last night until 3: 30 AM. She still has significant facial edema but less erythema, it appears to be improving. Onset: Gradual (Over the past several days, see earlier reports) Location: Reports: Face Face Pain Score (Numeric/FACES): 9 - Related Data Allergies Allergy/AdvReac Type Severity Reaction Status Date / Time fish derived Allergy Severe Difficulty Verified 03/06/17 12:31 Swallowing Home Meds: Home Meds Naproxen 500 mg PO ASDIRECTED PRN 07/19/16 [History] Ondansetron [Ondansetron] 4 mg PO ASDIRECTED PRN 07/19/16 [History] traMADol [Ultram] 50 mg PO QID PRN 07/23/16 [History] Acetaminophen/oxyCODONE [Percocet 325-5 MG] 1 - 2 each PO Q4H PRN #10 tab [Rx] Furosemide [Lasix] 10 mg PO DAILY 03/06/17 [History] Past Medical History HEENT History: Reports: Impaired Vision, Other (See Below) Other HEENT History: TOOTH PAIN Cardiovascular History: Reports: Other (See Below) Other Cardiovascular History: Paracardial cyst Respiratory History: Reports: Other (See Below) Other Respiratory History: chest tube d/t pericardial cyst treatment. 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 Sternal cortisone injections Neurological History: Reports: Other (See Below) Other Neuro History: Intercranial hypertension - Infectious Disease History Infectious Disease History: Reports: Chicken Pox, Shingles - Past Surgical History Cardiovascular Surgical History: Reports: Other (See Below) Other Cardiovascular Surgeries/Procedures: Paracardial cyst drained Neurological Surgical History: Reports: None Social & Family History - Tobacco Use Smoking Status *Q: Current Every Day Smoker Years of Tobacco use: 10 Packs/Tins Daily: 1 Used Tobacco, but Quit: No Second Hand Smoke Exposure: Yes - Caffeine Use Caffeine Use: Reports: Soda, Tea - Alcohol Use Days Per Week of Alcohol Use: 0 - Recreational Drug Use Recreational Drug Use: No ED ROS ENT - Review of Systems Review Of Systems: See Below Constitutional: Denies: Fever, Chills HEENT: Reports: Dental Pain Respiratory: Denies: Shortness of Breath GI/Abdominal: Reports: Nausea, Vomiting (Nausea and vomiting is improving) Skin: Reports: Bruising (Slight erythema and bruising around the upper right cheek and periorbital area is improving) ED EXAM, ENT - Physical Exam Exam: See Below Exam Limited By: No Limitations General Appearance: Alert, No Apparent Distress Eye Exam: Right Eye: Periorbital Changes (A small amount of inferior periorbital edema is still present) Mouth/Throat: Other (strainer tender over the right maxillary sinus and paranasial area of the right. She also still has a small fluctuant area on the hard palate) Course - Vital Signs Last Recorded V/S: Last Vital Signs Temp 97.9 F 03/07/17 08:55 Pulse 105 H 03/07/17 08:55 Resp 17 03/07/17 08:55 BP 138/87 03/07/17 08:55 Pulse Ox 95 03/07/17 08:55 - Orders/Labs/Meds Meds: Medications Discontinued Medications Generic Name Dose Route Start Last Admin Trade Name Harvey PRN Reason Stop Dose Admin Clindamycin Phosphate 600 mg/ 54 mls @ 100 mls/hr 03/07/17 09:30 03/07/17 09: 28 Sodium Chloride IV 03/07/17 10:02 100 mls/hr ONETIME ONE Administration Ketorolac Tromethamine 30 mg 03/07/17 09:03 03/07/17 09:24 Toradol IVPUSH 03/07/17 09:04 30 mg ONETIME ONE Administration Ondansetron HCl 4 mg 03/07/17 09:03 03/07/17 09:22 Zofran IVPUSH 03/07/17 09:04 4 mg ONETIME ONE Administration - Re-Assessments/Exams Free Text/Narrative Re-Assessment/Exam: 03/07/17 09:57 One more IV dose of clindamycin, 600 mg was given along with 30 mg of Toradol and 4 mg of Zofran. She feels well enough that she may even attempt to go back to work later this afternoon. She was discharged with oral clindamycin to take 300 mg 3 times a day, 5 doses of sublingual Zofran and will recheck with the dental clinic tomorrow morning. She can return to ER anytime if worsening. Departure - Departure Time of Disposition: 10:09 Disposition: Home, Self-Care 01 Condition: Good Clinical Impression: Dental abscess, Dental infection - Discharge Information Referrals: Domenico Bay MD [Primary Care Provider] - Forms: ED Department Discharge Care Plan Goals: Take antibiotic and Zofran as prescribed, and continue with pain medications as needed. Recheck tomorrow morning at the dental clinic as planned, and return to ER sooner if worsening or concerns.
== END 2017-03-07 10:10 | disposition home or self-care (01) ==
LOC: JP.ED 08:42
DX: K04.7 Periapical abscess without sinus (principal); F17.210 Nicotine dependence, cigarettes, uncomplicated; Z79.899 Other long term (current) drug therapy; Z91.013 Allergy to seafood
CPT/HCPCS: 96365; 96375; 99283; J1885; J2405; J7050; S0077

== ENCOUNTER 2017-03-28 18:13 | Emergency (ER) | payer MEDICAID ==
[2017-03-28] MEDS ORDERED: Sodium Chloride 0.9% 1,000 ML IV SCH (19:30)
--- NOTE | 2017-03-28 20:12 | EDM.PDOC ---
ED HPI GENERAL MEDICAL PROBLEM - General Chief Complaint: Neuro Symptoms/Deficits Stated Complaint: LOST VISION RT EYE/SAYING WORDS WRONG Time Seen by Provider: 03/28/17 18:37 Source of Information: Reports: Patient, Old Records, RN Notes Reviewed History Limitations: Reports: No Limitations - History of Present Illness INITIAL COMMENTS - FREE TEXT/NARRATIVE: Brought in by friend Chief complaint Vision and speech problems History of present illness 37-year-old female with history of chronic sinus infections, chronic headaches, asthma, sitting on the culture home and hour and a half prior to arrival when she had sudden problems with her vision. She couldn't see the screen or her friend who was over. However she found that when she looked towards the left she could see. This involved both eyes. The right visual field was gone. By the time she arrived this was improving. Her friend also noticed that she was having some trouble speaking at that time, speaking slower than usual. Slightly slurred when she read text but her speech was normal and just speaking in a conversational voice. No change in her headache, she's had headache for a few days and generally has chronic daily headaches. Has been diagnosed with migraines in the past as a teenager. Her headaches are often associated with some some blurry vision but never with the loss of vision that she had today. Yesterday she felt faint in the evening and walked to bed without any difficulty. Her faint feeling improved after 20 minutes andshe slept during the night without any difficulty. Appetite was normal today. 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 She was using a cart to move stuff, no heavy lifting. No difficulty working today. No weakness in her arms or legs tonight No nausea or vomiting. She did feel some pressure in her face which she often feels with her headaches, no nasal congestion but she feels like her sinuses are involved. No ear or throat pain No fever or chills No nausea vomiting or diarrhea. Head Pain Score (Numeric/FACES): 8 - Related Data Allergies Allergy/AdvReac Type Severity Reaction Status Date / Time fish derived Allergy Severe Difficulty Verified 03/28/17 19:05 Swallowing Home Meds: Home Meds Naproxen 500 mg PO ASDIRECTED PRN 07/19/16 [History] Ondansetron [Ondansetron] 4 mg PO ASDIRECTED PRN 07/19/16 [History] traMADol [Ultram] 50 mg PO QID PRN 07/23/16 [History] Furosemide [Lasix] 10 mg PO DAILY 03/06/17 [History] Clindamycin Hcl [IJD: Clindamycin HCl] 300 mg PO Q6HR 03/28/17 [History] Past Medical History HEENT History: Reports: Impaired Vision, Other (See Below) Other HEENT History: TOOTH PAIN Cardiovascular History: Reports: Other (See Below) Other Cardiovascular History: Paracardial cyst Respiratory History: Reports: Other (See Below) Other Respiratory History: chest tube d/t pericardial cyst treatment. 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, 02/03/16 Sternal cortisone injections Neurological History: Reports: Other (See Below) Other Neuro History: Intercranial hypertension - Infectious Disease History Infectious Disease History: Reports: Chicken Pox, Shingles - Past Surgical History Cardiovascular Surgical History: Reports: Other (See Below) Other Cardiovascular Surgeries/Procedures: Paracardial cyst drained Neurological Surgical History: Reports: None Social & Family History - Tobacco Use Smoking Status *Q: Current Every Day Smoker Years of Tobacco use: 10 Packs/Tins Daily: 1 Used Tobacco, but Quit: No Second Hand Smoke Exposure: Yes - Caffeine Use Caffeine Use: Reports: Soda, Tea - Alcohol Use Days Per Week of Alcohol Use: 0 - Recreational Drug Use Recreational Drug Use: No ED ROS GENERAL - Review of Systems Review Of Systems: See Below Constitutional: Denies: Fever, Chills, Diaphoresis, Decreased Appetite HEENT: Reports: Vision Change, Other (facial pain). Denies: Ear Discharge, Ear Pain, Hearing Loss, Nose Pain, Rhinitis, Throat Pain, Vertigo Respiratory: Reports: No Symptoms Cardiovascular: Reports: No Symptoms GI/Abdominal: Reports: No Symptoms. Denies: Nausea, Vomiting : Reports: No Symptoms Musculoskeletal: Reports: Neck Pain Skin: Reports: No Symptoms Neurological: Reports: Headache, Numbness (brieflyright hand after the blood pressure cuff on her right arm), Trouble Speaking, Change in Speech. Denies: Paresthesia, Syncope, Tingling, Difficulty Walking, Gait Disturbance Psychiatric: Reports: No Symptoms Hematologic/Lymphatic: Reports: No Symptoms Immunologic: Reports: No Symptoms ED EXAM, NEURO - Physical Exam Exam: See Below Exam Limited By: No Limitations General Appearance: Alert, Mild Distress, Other (she looks tired, vital signs show normal pulse saturation, no difficulties speaking or breathing, mild elevation blood pressure) Eye Exam: Bilateral Eye: EOMI, Normal Fundi, Normal Inspection, Other (visual toure by confrontation and finger counting was normal, no nystagmus) Ears: Normal External Exam, Normal Canal, Hearing Grossly Normal, Normal TMs Nose: Normal Inspection, Normal Mucosa Throat/Mouth: Normal Inspection, Normal Oropharynx Head Exam: Atraumatic Neck: Normal Inspection, Supple, Non-Tender. No: Carotid Bruit Respiratory/Chest: No Respiratory Distress, No Accessory Muscle Use Cardiovascular: Normal Peripheral Pulses, Regular Rate, Rhythm, No Murmur Neurological: Alert, Normal Gait, Normal Reflexes, No Motor/Sensory Deficits, Other (strength is equal bilaterally, no pronator drift, no facial droop) Back Exam: Normal Inspection Extremities: Normal Inspection, No Pedal Edema Psychiatric: Flat Affect Skin Exam: Warm, Dry, Intact, Normal Color, No Rash Course - Vital Signs Last Recorded V/S: Last Vital Signs Temp 36.5 C 03/28/17 20:30 Pulse 95 03/28/17 20:30 Resp 16 03/28/17 20:30 BP 134/89 03/28/17 20:30 Pulse Ox 100 03/28/17 20:30 - Orders/Labs/Meds Orders: Active Orders 24 hr Category Date Time Status EKG Documentation Completion [RC] ASDIRECTED Care 03/28/17 19:20 Active Head wo Cont [CT] Stat Exams 03/28/17 19:19 Taken EKG 12 Lead [EK] Routine Ther 03/28/17 19:19 Ordered Labs: Laboratory Tests 03/28/17 03/28/17 Range/Units 19:30 19:30 WBC 11.7 H (4.5-11.0) K/uL RBC 4.99 (3.30-5.50) M/uL Hgb 13.7 (12.0-15.0) g/dL Hct 41.5 (36.0-48.0) % MCV 83 (80-98) fL MCH 28 (27-31) pg MCHC 33 (32-36) % Plt Count 302 (150-400) K/uL Sodium 141 (140-148) mmol/L Potassium 3.8 (3.6-5.2) mmol/L Chloride 105 (100-108) mmol/L Carbon Dioxide 27 (21-32) mmol/L Anion Gap 8.7 (5.0-14.0) mmol/L BUN 6 L (7-18) mg/dL Creatinine 0.6 (0.6-1.0) mg/dL Est Cr Clr Drug Dosing 103.50 mL/min Estimated GFR (MDRD) > 60 (>60) Glucose 90 (74-106) mg/dL Calcium 8.8 (8.5-10.1) mg/dL Total Bilirubin 0.2 (0.2-1.0) mg/dL AST 19 (15-37) U/L ALT 30 D (12-78) U/L Alkaline Phosphatase 93 (46-116) U/L Total Protein 6.7 (6.4-8.2) g/dL Albumin 3.3 L (3.4-5.0) g/dL Globulin 3.4 (2.3-3.5) g/dL Albumin/Globulin Ratio 1.0 L (1.2-2.2) Meds: Medications Discontinued Medications Generic Name Dose Route Start Last Admin Trade Name Freq PRN Reason Stop Dose Admin Sodium Chloride 1,000 mls @ 250 mls/hr 03/28/17 19:30 03/28/17 19:44 Normal Saline IV 250 mls/hr ASDIRECTED [facility] Administration - Re-Assessments/Exams Free Text/Narrative Re-Assessment/Exam: 03/28/17 20:15 37-year-old female with chronic headaches, hemianopsia transiently this evening along with some reported speech difficulties but only when reading not with speaking. No gross motor deficits observed on examination. Vision symptoms have improved differential diagnoses includes atypical migraine, cerebrovascular problem, pituitary adenoma or other brain tumor. patient declined analgesics for headache Lab tests reassuring, mild elevation white count 11.7 CT head negative for intra-cranial pathology apart from mild sinusitis. Departure - Departure Time of Disposition: 20:54 Disposition: Home, Self-Care 01 Condition: Good Clinical Impression: Headache Qualifiers: Headache type: unspecified Headache chronicity pattern: acute headache Intractability: not intractable Qualified Code(s): R51 - Headache - Discharge Information Instructions: General Headache Without Cause Referrals: Domenico Bay MD [Primary Care Provider] - Forms: ED Department Discharge Additional Instructions: you have an atypical headache with visual changes that improved. Some of the causes include a growth in the brain or pituitary gland, elevated intracranial pressure, stroke, or atypical migraine. Since her symptoms have improved and there is no sign of abnormality on scanner testing, you are being discharged home. If you have recurring symptoms it is very important that you get rechecked. Otherwise follow-up with your regular doctor or your neurologist within a week - My Orders Last 24 Hours: My Active Orders 03/28/17 19:19 Head wo Cont [CT] Stat EKG 12 Lead [EK] Routine 03/28/17 19:20 EKG Documentation Completion [RC] ASDIRECTED - Assessment/Plan Last 24 Hours: My Active Orders 03/28/17 19:19 Head wo Cont [CT] Stat EKG 12 Lead [EK] Routine 03/28/17 19:20 EKG Documentation Completion [RC] ASDIRECTED
[2017-03-28 20:21] VITALS: BP 134/89
== END 2017-03-28 21:10 | disposition home or self-care (01) ==
LOC: JP.ED 18:13
DX: R51 Headache (principal); Z91.013 Allergy to seafood; Z79.899 Other long term (current) drug therapy; F17.210 Nicotine dependence, cigarettes, uncomplicated
CPT/HCPCS: 36415; 70450; 80053; 85027; 93005; 96360; 99285; J7040; 93010; 99284

== ENCOUNTER 2019-11-14 13:28 | Emergency (ER) | payer MEDICAID, OTHER ==
[2019-11-14 14:10] VITALS: BP 149/90; PULSE 94
[2019-11-14] MEDS ORDERED: Ondansetron 4 MG Tab.DIS PO ONE (14:40)
[2019-11-14] MEDS ORDERED: Sodium Chloride 0.9% 10 ML Syringe FLUSH PRN (14:41)
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
[2019-11-14] MEDS ORDERED: Iopamidol 612 MG/ML 150 ML Bottle IV SCH (15:00)
[2019-11-14] MEDS: Sodium Chloride 0.9% 10 ML Syringe FLUSH PRN ×2 (15:05→15:15)
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
[2019-11-14] MEDS ORDERED: Acetaminophen 500 MG Tab PO ONE (15:47)
== END 2019-11-14 16:07 | disposition home or self-care (01) ==
LOC: JP.ED 13:28
DX: R10.13 Epigastric pain (principal); F17.210 Nicotine dependence, cigarettes, uncomplicated; Z91.013 Allergy to seafood
CPT/HCPCS: 36415; 74177; 80048; 83690; 85027; 99284; A9270; J7050; Q9967

== ENCOUNTER 2021-11-18 22:03 | Emergency (ER) | payer BC, MEDICAID ==
[2021-11-19] MEDS ORDERED: Sodium Chloride 0.9% 10 ML Syringe FLUSH ONE (00:55)
[2021-11-19] MEDS ORDERED: Iopamidol 755 Mg/ML 100 ML Bottle IV SCH (01:00)
[2021-11-19] MEDS ORDERED: Sodium Chloride 0.9% 50 ML IV SCH (01:00)
[2021-11-19 01:07] LABS: ESTIMATED GFR 96 mL/min (>60)
[2021-11-19 02:25] VITALS: BP 134/80; PULSE 84
== END 2021-11-19 02:49 | disposition home or self-care (01) ==
LOC: JP.ED 22:03
DX: I50.9 Heart failure, unspecified (principal); R60.0 Localized edema; Z91.013 Allergy to seafood; Z79.899 Other long term (current) drug therapy; Z20.822 Contact with and (suspected) exposure to COVID-19
CPT/HCPCS: 36415; 71275; 80053; 83880; 84443; 84484; 85025; 85379; 86140; 87635; 93005; 99285; J3490; Q9967; 93010; 99284; U0002

== ENCOUNTER 2021-12-04 18:28 | Emergency (ER) | payer BC ==
[2021-12-04 19:30] VITALS: PULSE 89
[2021-12-04 20:12] LABS: ESTIMATED GFR 113 mL/min (>60)
[2021-12-04 20:13] VITALS: BP 140/74
== END 2021-12-04 21:27 | disposition home or self-care (01) ==
LOC: JP.ED 18:28
DX: R60.0 Localized edema (principal); L29.9 Pruritus, unspecified; D72.10 Eosinophilia, unspecified; Z91.013 Allergy to seafood
CPT/HCPCS: 36415; 80053; 83880; 85025; 99284

== ENCOUNTER 2021-12-27 10:41 | Emergency (ER) | payer BC ==
[2021-12-27 11:02] VITALS: BP 132/81; PULSE 59
[2021-12-27 12:34] LABS: ESTIMATED GFR 96 mL/min (>60); TROPONIN I HIGH SENSITIVITY 5.6 pg/mL (<=60.3)
== END 2021-12-27 14:30 | disposition home or self-care (01) ==
LOC: JP.ED 10:41
DX: R06.02 Shortness of breath (principal); D72.10 Eosinophilia, unspecified; E87.6 Hypokalemia; R60.0 Localized edema; R21 Rash and other nonspecific skin eruption; Z91.013 Allergy to seafood; Z79.899 Other long term (current) drug therapy; Z20.822 Contact with and (suspected) exposure to COVID-19
CPT/HCPCS: 36415; 71046; 80053; 83880; 84443; 84484; 85025; 93005; 99285; U0002

== ENCOUNTER 2022-01-12 19:06 | Emergency (ER) | payer BC ==
[2022-01-12 19:24] VITALS: BP 135/68; PULSE 100
[2022-01-12 20:05] LABS: ESTIMATED GFR 113 mL/min (>60)
[2022-01-12 20:06] LABS: TROPONIN I HIGH SENSITIVITY < 4.0 pg/mL (<=60.3)
== END 2022-01-12 21:02 | disposition home or self-care (01) ==
LOC: JP.ED 19:06
DX: R07.89 Other chest pain (principal); I11.0 Hypertensive heart disease with heart failure; I50.9 Heart failure, unspecified; Z91.013 Allergy to seafood; Z79.899 Other long term (current) drug therapy
CPT/HCPCS: 36415; 71045; 71045-26; 80053; 83605; 84484; 85025; 85379; 93005; 99285

== ENCOUNTER 2022-02-11 14:19 | Emergency (ER) | payer BC ==
[2022-02-11 16:16] VITALS: BP 110/46; PULSE 94
== END 2022-02-11 16:45 | disposition home or self-care (01) ==
LOC: JP.ED 14:19
DX: R06.02 Shortness of breath (principal); D72.10 Eosinophilia, unspecified; F17.210 Nicotine dependence, cigarettes, uncomplicated; Z91.013 Allergy to seafood; Z79.899 Other long term (current) drug therapy
CPT/HCPCS: 71045; 71045-26; 99284

== ENCOUNTER 2023-09-08 18:03 | Emergency (ER) | payer BC ==
[2023-09-08 18:52] LABS: BASOPHILS ABSOLUTE AUTO 0.05 K/uL (0.00-0.10); BASOPHILS PERCENT AUTO 0.3 % (0.1-1.3); EOSINOPHILS ABSOLUTE AUTO 0.12 K/uL (0.00-0.40); EOSINOPHILS PERCENT AUTO 0.7 % (0.0-5.4); HEMATOCRIT 43.4 % (34.3-46.0); HEMOGLOBIN 14.3 g/dL (11.2-15.5); IMMATURE GRAN ABSOLUTE AUTO 0.06 K/uL (0.00-0.23); IMMATURE GRAN PERCENT AUTO 0.4 % (0.0-0.7); LYMPHOCYTES ABSOLUTE AUTO 2.76 K/uL (0.8-3.3); LYMPHOCYTES PERCENT AUTO 16.8 % (11.4-47.7); MEAN CORPUSCULAR HEMOGLOBIN 27.2 pg (31.6-35.5); MEAN CORPUSCULAR HGB CONC 32.9 g/dL (31.6-35.5); MEAN CORPUSCULAR VOLUME 82.7 fL (81.4-99.0); MONOCYTES ABSOLUTE AUTO 1.33 K/uL (0.20-0.90); MONOCYTES PERCENT AUTO 8.1 % (3.3-12.6); NEUTROPHILS ABSOLUTE AUTO 12.07 K/uL (1.0-7.6); NEUTROPHILS PERCENT AUTO 73.7 % (40.0-78.1); PLATELET COUNT,PLT 296 K/uL (130-375); RED BLOOD CELL COUNT 5.25 M/uL (3.77-5.24); WHITE BLOOD CELL COUNT,WBC 16.4 K/uL (3.2-11.0)
[2023-09-08] MEDS: HYDROmorphone 0.5 MG/0.5 ML Syringe IVPUSH ONE ×3 (19:45→23:51)
[2023-09-08] MEDS: cefTRIAXone 2 GM in Sodium Chloride 0.9% 50 ML IV ONE (19:46)
[2023-09-08] MEDS: Sodium Chloride 0.9% 1,000 ML IV SCH (19:47)
[2023-09-08] MEDS: Sodium Chloride 0.9% 50 ML IV SCH (19:55)
[2023-09-08] MEDS: Iopamidol 612 MG/ML 100 ML Bottle IV SCH (19:55)
[2023-09-08] MEDS ORDERED: Sodium Chloride 0.9% 1,000 ML IV SCH (20:15)
[2023-09-09] MEDS: HYDROmorphone 0.5 MG/0.5 ML Syringe IVPUSH ONE (00:52)
[2023-09-09 00:56] VITALS: BP 162/87; PULSE 82
== END 2023-09-09 00:53 ==
LOC: JP.ED 18:03
DX: J36 Peritonsillar abscess (principal); I50.9 Heart failure, unspecified; Z91.013 Allergy to seafood; Z88.0 Allergy status to penicillin
CPT/HCPCS: 36415; 70491; 83605; 85025; 86140; 86308; 87040; 96361; 96374; 96375; 96376; 99284; 99285; J0696; J1170; J3490; J7030; Q9967

== ENCOUNTER 2024-07-11 22:14 | Emergency (ER) | payer BC ==
[2024-07-11] MEDS: Sodium Chloride 0.9% 80 ML IV SCH (23:00)
[2024-07-11] MEDS: Iopamidol 755 Mg/ML 100 ML Bottle IV SCH (23:00)
[2024-07-11 23:28] LABS: BASOPHILS ABSOLUTE AUTO 0.05 K/uL (0.00-0.10); BASOPHILS PERCENT AUTO 0.2 % (0.1-1.3); EOSINOPHILS ABSOLUTE AUTO 0.06 K/uL (0.00-0.40); EOSINOPHILS PERCENT AUTO 0.3 % (0.0-5.4); HEMOGLOBIN 14.1 g/dL (11.2-15.5); IMMATURE GRAN ABSOLUTE AUTO 0.16 K/uL (0.00-0.23); IMMATURE GRAN PERCENT AUTO 0.7 % (0.0-0.7); LYMPHOCYTES ABSOLUTE AUTO 4.18 K/uL (0.8-3.3); LYMPHOCYTES PERCENT AUTO 18.5 % (11.4-47.7); MEAN CORPUSCULAR HEMOGLOBIN 27.3 pg (31.6-35.5); MEAN CORPUSCULAR HGB CONC 32.8 g/dL (31.6-35.5); MEAN CORPUSCULAR VOLUME 83.3 fL (81.4-99.0); MONOCYTES ABSOLUTE AUTO 1.18 K/uL (0.20-0.90); MONOCYTES PERCENT AUTO 5.2 % (3.3-12.6); NEUTROPHILS ABSOLUTE AUTO 16.95 K/uL (1.0-7.6); NEUTROPHILS PERCENT AUTO 75.1 % (40.0-78.1); PLATELET COUNT,PLT 339 K/uL (130-375); RED BLOOD CELL COUNT 5.16 M/uL (3.77-5.24); WHITE BLOOD CELL COUNT,WBC 22.6 K/uL (3.2-11.0)
[2024-07-11 23:33] LABS: CALCIUM 9.2 mg/dL (8.5-10.1); CREATININE 0.9 mg/dL (0.6-1.0); EST CRCL DRUG DOSING (CG) 65.88 mL/min; POTASSIUM,K 3.7 mmol/L (3.6-5.2)
[2024-07-11 23:34] LABS: ANION GAP 13.7 mmol/L (5.0-14.0)
[2024-07-12 00:26] VITALS: BP 140/79; PULSE 85
== END 2024-07-12 00:15 | disposition home or self-care (01) ==
LOC: JP.ED 22:14
DX: G43.909 Migraine, unspecified, not intractable, without status migrainosus (principal); K21.9 Gastro-esophageal reflux disease without esophagitis; F17.210 Nicotine dependence, cigarettes, uncomplicated; I11.0 Hypertensive heart disease with heart failure; I50.9 Heart failure, unspecified; Z88.0 Allergy status to penicillin; Z91.013 Allergy to seafood; Z79.899 Other long term (current) drug therapy
CPT/HCPCS: 36415; 70450; 70496; 70498; 80048; 85025; 99284; Q9967